=== PATIENT | male | born 1955 ===

== ENCOUNTER 2022-10-25 06:13 | Observation (INO) ==
[~2022-10-25 06:13] MED LIST: Buffered Lidocaine 1% SYRIN 1 ml INTRADERM ONE; Famotidine IV 10 MG/ML 2 ml VIAL (20 mg) IV ONE; Lactated Ringers 1000 ml BAG 1,000 ML IV SCH
[2022-10-25] MEDS ORDERED: Famotidine IV 10 MG/ML 2 ml VIAL (20 mg) ONE (07:35)
[2022-10-25] MEDS ORDERED: ceFAZolin 2 GM PREMIX 2 GM/50 ML BAG ONE (07:35)
[2022-10-25] MEDS ORDERED: ROPIVACAINE 5 MG/ML 30 ML BTL (0.5%) ONE (08:09)
[2022-10-25] MEDS ORDERED: Levalbuterol 1.25MG/0.5ML NEB.SOL INH ONE (08:48)
[2022-10-25] MEDS ORDERED: Levalbuterol 1.25MG/0.5ML NEB.SOL ONE (08:48)
[2022-10-25] MEDS ORDERED: Rocuronium 50 mg VIAL 10 mg/ml 5 ml VIAL (50 mg) ONE (08:54)
[2022-10-25] MEDS ORDERED: Midazolam 2 mg/2 ml VIAL 1 mg/ml 2 ml VIAL (2 mg) ONE (08:54)
[2022-10-25] MEDS ORDERED: Ondansetron 4 mg VIAL 2 MG/ML 2 ml VIAL ONE (08:54)
[2022-10-25] MEDS ORDERED: Ketamine HCL 50 mg/ml 10 ml VIAL (500 MG) ONE (08:54)
[2022-10-25] MEDS ORDERED: fentaNYL 250 mcg/5 ml 50 MCG/ML 5 ml VIAL (250 MCG) ONE (08:54)
[2022-10-25] MEDS ORDERED: Dexamethasone IV 4 MG/ML VIAL 1 ml VIAL ONE (08:54)
[2022-10-25] MEDS ORDERED: Lidocaine 2% PF 5 ML VIAL ONE (08:54)
[2022-10-25] MEDS ORDERED: Levalbuterol 1.25MG/0.5ML NEB.SOL INH PRN (09:40)
[2022-10-25] MEDS ORDERED: Ondansetron 4 mg VIAL 2 MG/ML 2 ml VIAL IV PRN ×2 (09:40→11:54)
[2022-10-25] MEDS ORDERED: fentaNYL 100 mcg/2 ml 50 MCG/ML VIAL IV PRN (09:40)
[2022-10-25] MEDS ORDERED: Naloxone 0.4 mg VIAL 0.4 mg/ml 1 ml VIAL IV PRN (09:40)
[2022-10-25] MEDS ORDERED: Acetaminophen IV 1 GM/100ML 1,000 MG/100 ML BAG IV ONE (09:53)
[2022-10-25] MEDS ORDERED: HYDROmorphone 0.5 MG/0.5 ML SYRINGE ONE (10:31)
[2022-10-25] MEDS ORDERED: HYDROmorphone 1 MG/1 ML SYRINGE ONE (11:51)
[2022-10-25] MEDS: HYDROmorphone 1 MG/1 ML SYRINGE IV PRN ×2 (11:53→12:20)
[2022-10-25] MEDS ORDERED: Lactulose 30 ml UDC PO PRN (11:54)
[2022-10-25] MEDS ORDERED: Morphine 2 MG/ML SYRINGE IV PRN (11:54)
[2022-10-25] MEDS ORDERED: Ondansetron ODT 4 mg TAB 4 MG TAB PO PRN (11:54)
[2022-10-25] MEDS ORDERED: Magnesium Hydroxide LIQ 30 ML UDC PO PRN (11:54)
[2022-10-25] MEDS ORDERED: Lactated Ringers 1000 ml BAG 1,000 ML IV SCH (12:00)
[2022-10-25] MEDS ORDERED: fentaNYL 100 mcg/2 ml 50 MCG/ML VIAL ONE (13:03)
[2022-10-25] MEDS ORDERED: LORazepam 2 mg VIAL 1 ml IV PUSH SCH (15:00)
[2022-10-25] MEDS ORDERED: Lorazepam PYXIS KEY PRN (15:01)
[2022-10-25] MEDS: ceFAZolin 1 GM ADVAN 1 GM in NS 0.9% 50 ML 50 ML IVPB SCH (18:21)
[2022-10-25] MEDS: Magnesium Hydroxide LIQ 30 ML UDC PO SCH (21:53)
[2022-10-26] MEDS: ceFAZolin 1 GM ADVAN 1 GM in NS 0.9% 50 ML 50 ML IVPB SCH ×2 (02:00→10:20)
[2022-10-26 05:54] LABS: Hematocrit 38 % (42-52); Hemoglobin 12.8 g/dL (14.0-18.0); Mean Platelet Volume 7.1 fL (7.4-10.4); Platelet Count 203 10^3/uL (150-450)
[2022-10-26 06:29] LABS: Calcium 8.9 mg/dL (8.6-10.3); Creatinine, Serum 1.22 mg/dL (0.67-1.17); Potassium 4.4 mmol/L (3.5-5.0); eGFR CKD-EPI 64.6 (>60)
[2022-10-26] MEDS: Magnesium Hydroxide LIQ 30 ML UDC PO SCH (07:27)
[2022-10-26] MEDS ORDERED: Vitamin THERAPEUTIC TAB PO SCH (09:00)
[2022-10-26 11:25] VITALS: BP 151/77
== END 2022-10-26 13:07 | disposition home or self-care (01) ==
LOC: OR 06:13 → SSU 06:13 → EDSTATUS 07:30
PROVIDERS: ADMIT Orthopaedic Surgery Adult Reconstructive Orthopaedic Surgery; ATTEND Orthopaedic Surgery Adult Reconstructive Orthopaedic Surgery